=== PATIENT | female | born 1935 | race Caucasian/White ===

== ENCOUNTER 2016-10-27 14:59 | Emergency (ER) | payer MEDICARE, BC ==
[2016-10-27 17:49] VITALS: BP 126/64
--- NOTE | 2016-10-27 18:40 | EDM.PDOC ---
ED HPI GENERAL MEDICAL PROBLEM - General Chief Complaint: General Time Seen by Provider: 10/27/16 17:22 Source of Information: Reports: Patient, Old records, RN notes reviewed History Limitations: Reports: No limitations - History of Present Illness INITIAL COMMENTS - FREE TEXT/NARRATIVE: 81-year-old female presents emergency department today sent from clinic concern for development of a blood clot she had swelling in her left lower extremity lab work was done CBC CMP unremarkable ultrasound was ordered and then canceled , she denies shortness of breath chest pain nausea vomiting swelling has improved since her initial evaluation in clinic denies Pain Score (Numeric/FACES): 0 - Related Data Allergies Allergy/AdvReac Type Severity Reaction Status Date / Time atorvastatin calcium Allergy Hives Verified 10/27/16 16:14 [From Lipitor] sulfamethoxazole Allergy Rash Verified 10/27/16 16:14 [From Bactrim] trimethoprim [From Bactrim] Allergy Rash Verified 10/27/16 16:14 ampicillin AdvReac Stomach Verified 10/27/16 16:14 Upset ezetimibe [From Vytorin] AdvReac Muscle Verified 10/27/16 16:14 Aches lovastatin [From Mevacor] AdvReac Muscle Verified 10/27/16 16:14 Aches simvastatin [From Vytorin] AdvReac Muscle Verified 10/27/16 16:14 Aches environmental Allergy Sneezing Uncoded 10/27/16 16:14 Home Meds: Home Meds Isosorbide Mononitrate [Isosorbide Mononitrate ER] 30 mg PO DAILY 06/02/14 [ History] Metoprolol Tartrate [Lopressor] 25 mg PO BEDTIME 06/02/14 [History] Metoprolol Tartrate [Lopressor] 50 mg PO QAM 06/02/14 [History] Multivitamin [Multi-Vitamin Daily] 1 each PO DAILY 06/02/14 [History] Rosuvastatin [Crestor] 10 mg PO BEDTIME 06/02/14 [History] Furosemide [Lasix] 40 mg PO DAILY 11/12/14 [History] Magnesium Oxide 400 mg PO DAILY 11/12/14 [History] Nitroglycerin [Nitrostat] 0.4 mg SL ASDIRECTED PRN 11/12/14 [History] Potassium Chloride [Klor-Con] 20 meq PO DAILY 11/12/14 [History] Warfarin [Coumadin] 4 mg PO BEDTIME 11/12/14 [History] Ergocalciferol (Vitamin D2) [Vitamin D] 400 units PO DAILY 05/18/16 [History] Nystatin [Nystatin Ointment] 1 dose TOP BID 08/27/16 [History] [place]-3/DHA/Epa/Fish Oil [[place]-3 Fish Oil 1,000 MG Sfgl] 1 tab PO DAILY [History] Warfarin Sodium [Coumadin] 6 mg PO ASDIRECTED 08/27/16 [History] Past Medical History HEENT History: Reports: Cataract, Epistaxis, Impaired vision Other HEENT History: on coumadin Cardiovascular History: Reports: Afib, CAD, Heart Failure, High cholesterol, Hypertension, Prior cardiac arrest, Stents Gastrointestinal History: Reports: Chronic constipation Genitourinary History: Reports: UTI, recurrent 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: Dysfunctional uterine bleeding, Musculoskeletal History: Reports: Arthritis Neurological History: Reports: TIA Endocrine/Metabolic History: Reports: Obesity/BMI 30+ Oncologic (Cancer) History: Reports: Colon Dermatologic History: Reports: Other (see below) Other Dermatologic History: keratosis - Infectious Disease History Infectious Disease History: Reports: Chicken pox, Measles, Mumps - Past Surgical History HEENT Surgical History: Reports: Adenoidectomy, Cataract surgery, Tonsillectomy Cardiovascular Surgical History: Reports: Coronary artery stent, Pacer, Other ( see below) Other Cardiovascular Surgeries/Procedures: pacemaker/defibrillator, multiple angiograms GI Surgical History: Reports: Appendectomy, Cholecystectomy, Colonoscopy, Other (see below) Other GI Surgeries/Procedures: colon resection for colon CA Female Surgical History: Reports: Breast biopsy, Hysterectomy Social & Family History - Tobacco Use Smoking Status *Q: Never Smoker Years of Tobacco use: 40 Packs/Tins Daily: 0.5 Used Tobacco, but Quit: Yes Month Tobacco Last Used: 07/2004 Second Hand Smoke Exposure: No - Caffeine Use Caffeine Use: Reports: Coffee, Tea - Alcohol Use Days Per Week of Alcohol Use: 3 Number of Drinks Per Day: 1 Total Drinks Per Week: 3 - Recreational Drug Use Recreational Drug Use: No - Living Situation & Occupation Living situation: Reports: , with spouse Occupation: retired ED ROS GENERAL - Review of Systems Review Of Systems: See Below Constitutional: Reports: no symptoms Respiratory: Reports: No Symptoms Cardiovascular: Reports: Edema GI/Abdominal: Reports: No symptoms : Reports: no symptoms ED EXAM, GENERAL - Physical Exam Exam: See Below Free Text/Narrative:: examination of the left lower extremity do appreciate a few petechiae on the medial aspect of the left lower charming pedal pulses +1 full range of motion of the ankle without pain there's no tenderness in the toes I don't appreciate much for edema there is no tenderness to palpation Exam Limited By: No limitations General Appearance: alert, WD/WN, no apparent distress Respiratory/Chest: no respiratory distress Course - Vital Signs Last Recorded V/S: Last Vital Signs Temp 99.1 F 10/27/16 16:21 Pulse 65 10/27/16 17:47 Resp 16 10/27/16 17:47 BP 126/64 10/27/16 17:47 Pulse Ox 96 10/27/16 17:47 - Orders/Labs/Meds Orders: Active Orders 24 hr Category Date Time Status VL Duplex Lwr Ext Veins Ltd Lt [US] Stat Exams 10/27/16 17:11 Taken Departure - Departure Time of Disposition: 18:39 Disposition: Home, Self-Care 01 Condition: good Clinical Impression: Peripheral vascular disease Forms: ED Department Discharge Additional Instructions: try the compression hose, Please followup with your primary care provider in 3 -5 days if not better, please call return to the emergency department with worsening of symptoms. - My Orders Last 24 Hours: My Active Orders 10/27/16 17:11 VL Duplex Lwr Ext Veins Ltd Lt [US] Stat - Assessment/Plan Last 24 Hours: My Active Orders 10/27/16 17:11 VL Duplex Lwr Ext Veins Ltd Lt [US] Stat Plan: Assessment Acuity = chronic Site and laterality = leg edema Etiology = suspicious for peripheral vascular disease Manifestations = none Location of injury = home Lab values = ultrasound lower extremity was negative for any DVT Plan recommend trying compression hose for evaluation one week also recommend further evaluation by primary care including ankle-brachial index Patient was in agreement with the plan all questions were answered, they were instructed to return to the emergency department or call for worsening symptoms. This note was dictated using [employer] voice recognition software please call with any questions.
--- NOTE | 2016-10-30 10:01 | US ---
VL Duplex Lwr Ext Veins Ltd Lt pain and swelling FINDINGS: Ultrasound examination of the lower extremity using Doppler and compressive technique demo nstrates that the common femoral, femoral, and popliteal veins are patent, and negative for thrombus . The calf veins were segmentally visualized and are negative where seen. IMPRESSION: Negative for deep venous thrombosis.
== END 2016-10-27 18:49 | disposition home or self-care (01) ==
LOC: JP.ED 14:59
DX: I73.9 Peripheral vascular disease, unspecified (principal); I48.91 Unspecified atrial fibrillation; I50.9 Heart failure, unspecified; E78.00 Pure hypercholesterolemia, unspecified; I10 Essential (primary) hypertension; E66.9 Obesity, unspecified; Z68.32 Body mass index [BMI] 32.0-32.9, adult; Z86.73 Personal history of transient ischemic attack (TIA), and cerebral infarction without residual deficits; Z98.49 Cataract extraction status, unspecified eye; Z95.0 Presence of cardiac pacemaker; Z95.1 Presence of aortocoronary bypass graft; Z90.49 Acquired absence of other specified parts of digestive tract; Z90.710 Acquired absence of both cervix and uterus; Z98.890 Other specified postprocedural states; Z79.01 Long term (current) use of anticoagulants; Z79.899 Other long term (current) drug therapy; Z88.1 Allergy status to other antibiotic agents; Z88.8 Allergy status to other drugs, medicaments and biological substances
CPT/HCPCS: 93971-26-LT; 93971-LT; 99283; 99284-25

== ENCOUNTER 2019-06-01 09:31 | Emergency (ER) | payer MEDICARE, BC ==
--- NOTE | 2019-06-01 09:54 | EDM.PDOC ---
ED HPI GENERAL MEDICAL PROBLEM - General Chief Complaint: General Stated Complaint: HEART ISSUES Time Seen by Provider: 06/01/19 09:54 Source of Information: Reports: Patient History Limitations: Reports: No Limitations - History of Present Illness INITIAL COMMENTS - FREE TEXT/NARRATIVE: For the past 2 weeks melo has been quite sob. She woke up this am and she felt like her heart was rapid and irregular. She has not had chest pain. Onset: Other ( rapid heart rhythm when she first woke up. She is better now. ) Duration: Hour(s): Location: Reports: Chest Associated Symptoms: Reports: Shortness of Breath, Weakness - Related Data Allergies Allergy/AdvReac Type Severity Reaction Status Date / Time atorvastatin calcium Allergy Hives Verified 06/01/19 10:01 [From Lipitor] sulfamethoxazole Allergy Rash Verified 06/01/19 10:01 [From Bactrim] trimethoprim [From Bactrim] Allergy Rash Verified 06/01/19 10:01 ampicillin AdvReac Stomach Verified 06/01/19 10:01 Upset ezetimibe [From Vytorin] AdvReac Muscle Verified 06/01/19 10:01 Aches lovastatin [From Mevacor] AdvReac Muscle Verified 06/01/19 10:01 Aches simvastatin [From Vytorin] AdvReac Muscle Verified 06/01/19 10:01 Aches environmental Allergy Sneezing Uncoded 05/09/18 13:42 Home Meds: Home Meds Isosorbide Mononitrate [Isosorbide Mononitrate ER] 30 mg PO DAILY 06/02/14 [ History] Metoprolol Tartrate [Lopressor] 25 mg PO BEDTIME 06/02/14 [History] Metoprolol Tartrate [Lopressor] 50 mg PO QAM 06/02/14 [History] Multivitamin [Multi-Vitamin Daily] 1 each PO DAILY 06/02/14 [History] Furosemide [Lasix] 40 mg PO DAILY 11/12/14 [History] Nitroglycerin [Nitrostat] 0.4 mg SL ASDIRECTED PRN 11/12/14 [History] Potassium Chloride [Klor-Con] 20 meq PO DAILY 11/12/14 [History] Warfarin [Coumadin] 4 mg PO BEDTIME 11/12/14 [History] Ergocalciferol (Vitamin D2) [Vitamin D] 400 units PO DAILY 05/18/16 [History] Nystatin [Nystatin Ointment] 1 dose TOP BID 08/27/16 [History] [place]-3/DHA/Epa/Fish Oil [[place]-3 Fish Oil 1,000 MG Sfgl] 1 tab PO DAILY [History] Clopidogrel [Plavix] 75 mg PO DAILY 05/09/18 [History] Past Medical History HEENT History: Reports: Cataract, Epistaxis, Impaired Vision Other HEENT History: on coumadin Cardiovascular History: Reports: Afib, CAD, Heart Failure, High Cholesterol, Hypertension, Prior Cardiac Arrest, Stents Gastrointestinal History: Reports: Chronic Constipation Genitourinary History: Reports: UTI, Recurrent 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: Dysfunctional Uterine Bleeding, Musculoskeletal History: Reports: Arthritis Neurological History: Reports: TIA Endocrine/Metabolic History: Reports: Obesity/BMI 30+ Oncologic (Cancer) History: Reports: Colon, Lung Dermatologic History: Reports: Other (See Below) Other Dermatologic History: keratosis - Infectious Disease History Infectious Disease History: Reports: Chicken Pox, Measles, Mumps - Past Surgical History HEENT Surgical History: Reports: Adenoidectomy, Cataract Surgery, Tonsillectomy Cardiovascular Surgical History: Reports: Coronary Artery Stent, Pacer GI Surgical History: Reports: Appendectomy, Cholecystectomy, Colonoscopy, Other (See Below) Other GI Surgeries/Procedures: colon resection Female Surgical History: Reports: Breast Biopsy, Hysterectomy Social & Family History - Caffeine Use Caffeine Use: Reports: Coffee, Tea - Living Situation & Occupation Living situation: Reports: , with Spouse Occupation: Retired ED ROS GENERAL - Review of Systems Review Of Systems: See Below Constitutional: Reports: No Symptoms, Weakness HEENT: Reports: No Symptoms Respiratory: Reports: No Symptoms Cardiovascular: Reports: No Symptoms Endocrine: Reports: No Symptoms GI/Abdominal: Reports: No Symptoms : Reports: No Symptoms Musculoskeletal: Reports: No Symptoms Skin: Reports: No Symptoms Neurological: Reports: No Symptoms ED EXAM, GENERAL - Physical Exam Exam: See Below Free Text/Narrative:: pt hs had some rapid rhythms when she first wakes up in the am. She has not had chest pain. She has been very tired out. Exam Limited By: No Limitations General Appearance: Alert, No Apparent Distress Ears: Normal TMs Nose: Normal Inspection Throat/Mouth: Normal Inspection Head: Atraumatic Neck: Normal Inspection Respiratory/Chest: No Respiratory Distress, Other (pt did not have rales or wheezing. ) Cardiovascular: Regular Rate, Rhythm, Other (pt has a history of atrial fib and thinks she may have been in and out of that. ) GI/Abdominal: Soft, Non-Tender Rectal (Female) Exam: Deferred Back Exam: Normal Inspection Extremities: Normal Inspection Neurological: Alert, Oriented, Normal Cognition Psychiatric: Normal Affect Course - Vital Signs Last Recorded V/S: Last Vital Signs Temp 36.4 C 06/01/19 10:01 Pulse 64 06/01/19 10:01 Resp 14 06/01/19 10:01 BP 168/67 H 06/01/19 10:01 Pulse Ox 95 06/01/19 10:01 - Orders/Labs/Meds Orders: Active Orders 24 hr Category Date Time Status EKG Documentation Completion [RC] ASDIRECTED Care 06/01/19 09:53 Active CULTURE URINE [RM] Stat Lab 06/01/19 14:00 Received EKG 12 Lead [EK] Routine Ther 06/01/19 09:53 Ordered Labs: Laboratory Tests 06/01/19 06/01/19 06/01/19 Range/Units 10:04 10:04 10:04 WBC 5.2 (4.5-11.0) K/uL RBC 4.27 (3.30-5.50) M/uL Hgb 14.3 (12.0-15.0) g/dL Hct 43.5 (36.0-48.0) % MCV 102 H (80-98) fL MCH 34 H (27-31) pg MCHC 33 (32-36) % Plt Count 185 (150-400) K/uL Neut % (Auto) 46 (36-66) % Lymph % (Auto) 33 (24-44) % Heard % (Auto) 15 H (2-6) % Eos % (Auto) 5 H (2-4) % Baso % (Auto) 1 (0-1) % PT (9.5-12.0) sec INR (0.80-1.20) Sodium 140 (140-148) mmol/L Potassium 4.4 (3.6-5.2) mmol/L Chloride 102 (100-108) mmol/L Carbon Dioxide 29 (21-32) mmol/L Anion Gap 8.8 (5.0-14.0) mmol/L BUN 28 H (7-18) mg/dL Creatinine 1.4 H (0.6-1.0) mg/dL Est Cr Clr Drug Dosing 29.61 mL/min Estimated GFR (MDRD) 36 L (>60) Glucose 121 H (74-106) mg/dL Calcium 9.4 (8.5-10.1) mg/dL Total Bilirubin 0.8 (0.2-1.0) mg/dL AST 20 (15-37) U/L ALT 22 (12-78) U/L Alkaline Phosphatase 99 (46-116) U/L Troponin I 0.020 (0.000-0.056) ng/mL NT-Pro-B Natriuret Pep (5-450) pg/mL Total Protein 7.1 (6.4-8.2) g/dL Albumin 3.5 (3.4-5.0) g/dL Globulin 3.6 H (2.3-3.5) g/dL Albumin/Globulin Ratio 1.0 L (1.2-2.2) Urine Color (YELLOW) Urine Appearance (CLEAR) Urine pH (5.0-8.0) Ur Specific [place] (1.008-1.030) Urine Protein (NEGATIVE) mg/dL Urine Glucose (UA) (NEGATIVE) mg/dL Urine Ketones (NEGATIVE) mg/dL Urine Occult Blood (NEGATIVE) Urine Nitrite (NEGATIVE) Urine Bilirubin (NEGATIVE) Urine Urobilinogen (0.2-1.0) EU/dL Ur Leukocyte Esterase (NEGATIVE) Urine RBC (0-5) Urine WBC (0-5) Ur Epithelial Cells Amorphous Sediment Urine Bacteria Urine Mucus 06/01/19 06/01/19 06/01/19 Range/Units 10:04 10:04 10:46 WBC (4.5-11.0) K/uL RBC (3.30-5.50) M/uL Hgb (12.0-15.0) g/dL Hct (36.0-48.0) % MCV (80-98) fL MCH (27-31) pg MCHC (32-36) % Plt Count (150-400) K/uL Neut % (Auto) (36-66) % Lymph % (Auto) (24-44) % Heard % (Auto) (2-6) % Eos % (Auto) (2-4) % Baso % (Auto) (0-1) % PT 25.7 H (9.5-12.0) sec INR 2.51 H (0.80-1.20) Sodium (140-148) mmol/L Potassium (3.6-5.2) mmol/L Chloride (100-108) mmol/L Carbon Dioxide (21-32) mmol/L Anion Gap (5.0-14.0) mmol/L BUN (7-18) mg/dL Creatinine (0.6-1.0) mg/dL Est Cr Clr Drug Dosing mL/min Estimated GFR (MDRD) (>60) Glucose (74-106) mg/dL Calcium (8.5-10.1) mg/dL Total Bilirubin (0.2-1.0) mg/dL AST (15-37) U/L ALT (12-78) U/L Alkaline Phosphatase (46-116) U/L Troponin I (0.000-0.056) ng/mL NT-Pro-B Natriuret Pep 647 H (5-450) pg/mL Total Protein (6.4-8.2) g/dL Albumin (3.4-5.0) g/dL Globulin (2.3-3.5) g/dL Albumin/Globulin Ratio (1.2-2.2) Urine Color Yellow (YELLOW) Urine Appearance Clear (CLEAR) Urine pH 7.0 (5.0-8.0) Ur Specific [place] 1.015 (1.008-1.030) Urine Protein Negative (NEGATIVE) mg/dL Urine Glucose (UA) Negative (NEGATIVE) mg/dL Urine Ketones Negative (NEGATIVE) mg/dL Urine Occult Blood Trace-intact H (NEGATIVE) Urine Nitrite Positive H (NEGATIVE) Urine Bilirubin Negative (NEGATIVE) Urine Urobilinogen 0.2 (0.2-1.0) EU/dL Ur Leukocyte Esterase Trace H (NEGATIVE) Urine RBC 0-5 (0-5) Urine WBC 0-5 (0-5) Ur Epithelial Cells Rare Amorphous Sediment Rare Urine Bacteria Moderate Urine Mucus Rare - Re-Assessments/Exams Free Text/Narrative Re-Assessment/Exam: 06/01/19 15:00 pt had a cat scan of the chest and there was concern that she may have some infection around the area of scarring, Most recent cat scans were done at [facility]. The Cat scan was placed on disc so that her oncologist could compare. She was also found to have a UTI. Will place pt on Levoquin Departure - Departure Time of Disposition: 14:24 Disposition: Home, Self-Care 01 Condition: Fair Clinical Impression: Pneumonia of right lung due to infectious organism, UTI (urinary tract infection) - Discharge Information Instructions: Urinary Tract Infection, Adult, [id number], Community-Acquired Pneumonia, Adult, [id number] Referrals: Matheus Moody MD [Primary Care Provider] - Forms: ED Department Discharge Care Plan Goals: push fluids, levoquin 500mg daily appt with oncology in the next week to 10 days. - My Orders Last 24 Hours: My Active Orders 06/01/19 09:53 EKG Documentation Completion [RC] ASDIRECTED EKG 12 Lead [EK] Routine 06/01/19 14:00 CULTURE URINE [RM] Stat - Assessment/Plan Last 24 Hours: My Active Orders 06/01/19 09:53 EKG Documentation Completion [RC] ASDIRECTED EKG 12 Lead [EK] Routine 06/01/19 14:00 CULTURE URINE [RM] Stat
[2019-06-01 09:58] VITALS: BP 168/67; PULSE 64
--- NOTE | 2019-06-01 11:42 | CRLCR ---
Clinical INDICATION: Shortness of breath. FINDINGS: There is an infiltrate within the posterior segment of the right upper lobe most likely representing pneumonia. The left lung is clear. There is a pacemaker device upon the left side of the chest with right atrial and right ventricular leads. There is an electronic device inferior to the pacemaker that is superficial to the skin. The pulmonary vasculature and pleural surfaces appear normal. There are right upper quadrant cholecystectomy clips. IMPRESSION: Right upper lobe infiltrate consistent with pneumonia. Radiographic followup to total resolution is recommended. Dictated by Ayden Teran MD @ Jun 01 2019 11:37AM Signed by Dr. Ayden Teran @ Jun 01 2019 11:40AM
--- NOTE | 2019-06-01 14:15 | CRLCT ---
INDICATION: Pulmonary infiltrate. History of right lung cancer. TECHNIQUE: CT chest without contrast. COMPARISON: Chest radiograph 04/01/2019 FINDINGS: Cardiovascular structures: Mild left atrial enlargement. No pericardial effusion. Coronary artery calcifications. Mitral annular calcification. Atherosclerotic calcification the thoracic aorta. Dilatation of the ascending aorta measuring 4.4 cm, not significantly changed since 01/03/2017. Left chest wall dual lead AICD with lead tips terminating in the right atrium and right ventricle. Mediastinum and leila: No mediastinal or hilar lymphadenopathy, noting somewhat limited evaluation of the leila due to lack of intravenous contrast. Lungs: There are probable postsurgical changes of right upper lobe wedge resection. There is a dense consolidation in the right upper lobe with air bronchograms. Areas of scarring in the right upper lobe likely related to postradiation changes. Biapical pleural parenchymal scarring. Few scattered ground-glass opacities in the left lower lobe (for example, series 3, images 47, 65, 73, 76). Pleura and pericardium: No effusions. Chest wall and axilla: No mass or adenopathy. Bones: Mild degenerative changes of the spine. Upper abdomen: Status post cholecystectomy. There is intrahepatic biliary ductal pneumatosis. Partially visualized surgical clips and sutures at the colon along the hepatic flexure. IMPRESSION: 1. Dense consolidation in the right upper lobe with air bronchograms, suspicious for pneumonia. A postobstructive pneumonia cannot be entirely excluded. Recommend comparison to more recent chest CT repeat chest CT following treatment. 2. Few scattered ground-glass opacities in the left lower lobe, likely related to infectious or inflammatory etiology. 3. Ascending aortic aneurysm measuring 4.4 cm, not significantly changed since 01/03/2017. Findings discussed with Dr. Tinsley on 06/01/2019 at 2:10 p.m. Dictated by Shanique Lacy MD @ 06/01/2019 2:13:55 PM Please note that all CT scans at this facility use dose modulation, iterative reconstruction, and/or weight-based dosing when appropriate to reduce radiation dose to as low as reasonably achievable. Dictated by: Shanique Lacy MD @ 06/01/2019 14:14:20 (Electronically Signed)
== END 2019-06-01 14:46 | disposition home or self-care (01) ==
LOC: JP.ED 09:31
DX: J18.9 Pneumonia, unspecified organism (principal); N39.0 Urinary tract infection, site not specified; I11.0 Hypertensive heart disease with heart failure; I50.9 Heart failure, unspecified; I25.10 Atherosclerotic heart disease of native coronary artery without angina pectoris; I48.91 Unspecified atrial fibrillation; E66.9 Obesity, unspecified; Z79.899 Other long term (current) drug therapy; Z88.8 Allergy status to other drugs, medicaments and biological substances; Z91.09 Other allergy status, other than to drugs and biological substances; Z88.1 Allergy status to other antibiotic agents
CPT/HCPCS: 36415; 71046; 71250; 80053; 81001; 83880; 84484; 85025; 85610; 87086; 87088; 87186; 93005; 93010; 99285-25

== ENCOUNTER 2020-01-19 07:41 | Emergency (ER) | payer MEDICARE, BC ==
--- NOTE | 2020-01-19 08:18 | EDM.PDOC ---
ED HPI GENERAL MEDICAL PROBLEM - General Chief Complaint: Back Pain or Injury Stated Complaint: BACK/SHOULDER PAIN FROM FALL Time Seen by Provider: 01/19/20 08:07 Source of Information: Reports: Patient, Family, RN Notes Reviewed History Limitations: Reports: No Limitations - History of Present Illness INITIAL COMMENTS - FREE TEXT/NARRATIVE: 84-year-old female presents to the emergency department with a complaint of back pain and knee pain, she fell yesterday on her deck while she was watering her ying landed on her right knee and then fell to the ground. She has not taken anything for the pain but she states the right knee hurts and she has pain in the middle of her back she describes a clicking noise. No loss of consciousness she did not hit her head she is not taking anything for the pain Upper Back Pain Score (Numeric/FACES): 3 - Related Data Allergies Allergy/AdvReac Type Severity Reaction Status Date / Time atorvastatin calcium Allergy Hives Verified 06/11/19 01:12 [From Lipitor] sulfamethoxazole Allergy Rash Verified 06/11/19 01:12 [From Bactrim] trimethoprim [From Bactrim] Allergy Rash Verified 06/11/19 01:12 ampicillin AdvReac Stomach Verified 06/11/19 01:12 Upset ezetimibe [From Vytorin] AdvReac Muscle Verified 06/11/19 01:12 Aches lovastatin [From Mevacor] AdvReac Muscle Verified 06/11/19 01:12 Aches simvastatin [From Vytorin] AdvReac Muscle Verified 06/11/19 01:12 Aches environmental Allergy Sneezing Uncoded 06/11/19 01:12 Home Meds: Home Meds Isosorbide Mononitrate [Isosorbide Mononitrate ER] 30 mg PO DAILY 06/02/14 [History] Metoprolol Tartrate [Lopressor] 25 mg PO BEDTIME 06/02/14 [History] Metoprolol Tartrate [Lopressor] 50 mg PO QAM 06/02/14 [History] Multivitamin [Multi-Vitamin Daily] 1 each PO DAILY 06/02/14 [History] Furosemide [Lasix] 40 mg PO DAILY 11/12/14 [History] Nitroglycerin [Nitrostat] 0.4 mg SL ASDIRECTED PRN 11/12/14 [History] Potassium Chloride [Klor-Con] 20 meq PO DAILY 11/12/14 [History] Warfarin [Coumadin] 4 mg PO BEDTIME 11/12/14 [History] Ergocalciferol (Vitamin D2) [Vitamin D] 400 units PO DAILY 05/18/16 [History] Nystatin [Nystatin Ointment] 1 dose TOP BID 08/27/16 [History] Clopidogrel [Plavix] 75 mg PO DAILY 05/09/18 [History] allopurinoL [Zyloprim] 200 mg PO BEDTIME 01/19/20 [History] Past Medical History HEENT History: Reports: Cataract, Epistaxis, Impaired Vision Other HEENT History: on coumadin Cardiovascular History: Reports: Afib, Automatic Implantable Cardioverter Defibrillators, CAD, Heart Failure, High Cholesterol, Hypertension, PA, Pacemaker, Prior Cardiac Arrest, Stents Respiratory History: Reports: Other (See Below) Other Respiratory History: Lung CA Gastrointestinal History: Reports: Chronic Constipation Genitourinary History: Reports: UTI, 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: Dysfunctional Uterine Bleeding, Musculoskeletal History: Reports: Arthritis Neurological History: Reports: TIA Endocrine/Metabolic History: Reports: Obesity/BMI 30+ Hematologic History: Reports: Anticoagulation Therapy Oncologic (Cancer) History: Reports: Colon, Lung Dermatologic History: Reports: Other (See Below) Other Dermatologic History: keratosis - Infectious Disease History Infectious Disease History: Reports: Chicken Pox, Measles - Past Surgical History HEENT Surgical History: Reports: Adenoidectomy, Cataract Surgery, Tonsillectomy Cardiovascular Surgical History: Reports: AICD, Coronary Artery Stent, Pacer Respiratory Surgical History: Reports: Lung Biopsies GI Surgical History: Reports: Appendectomy, Cholecystectomy, Colonoscopy, Other (See Below) Other GI Surgeries/Procedures: colon resection Female Surgical History: Reports: Breast Biopsy, Hysterectomy Social & Family History - Tobacco Use Smoking Status *Q: Never Smoker - Caffeine Use Caffeine Use: Reports: Coffee - Living Situation & Occupation Living situation: Reports: , with Spouse Occupation: Retired ED ROS GENERAL - Review of Systems Review Of Systems: See Below Constitutional: Reports: No Symptoms Respiratory: Reports: No Symptoms Cardiovascular: Reports: No Symptoms GI/Abdominal: Reports: No Symptoms Musculoskeletal: Reports: Back Pain, Joint Pain (Right knee pain) ED EXAM, GENERAL - Physical Exam Exam: See Below Free Text/Narrative:: Examination of the right knee I do appreciate a superficial abrasion inferior aspect of the patella I cannot elicit any joint line tenderness there is no tenderness with valgus or valgus maneuvers anterior drawer is negative Lockman's is negative, examination of the thorax she is point tender about the T4 region on the spinous process otherwise no tenderness to palpation paraspinally respirations are symmetrical Exam Limited By: No Limitations General Appearance: Alert, WD/WN, No Apparent Distress Respiratory/Chest: No Respiratory Distress, Lungs Clear, Normal Breath Sounds, No Accessory Muscle Use, Chest Non-Tender Cardiovascular: Regular Rate, Rhythm, No Murmur Course - Vital Signs Last Recorded V/S: Last Vital Signs Temp 97 F 01/19/20 08:00 Pulse 63 01/19/20 09:52 Resp 16 01/19/20 09:52 BP 126/61 01/19/20 09:52 Pulse Ox 99 01/19/20 09:52 Departure - Departure Time of Disposition: 09:58 Disposition: Home, Self-Care 01 Condition: Fair Clinical Impression: Knee contusion Qualifiers: Encounter type: initial encounter Laterality: right Qualified Code(s): S80.01XA - Contusion of right knee, initial encounter Compression fracture of T9 vertebra Qualifiers: Encounter type: initial encounter Qualified Code(s): S22.070A - Wedge com pression fracture of T9-T10 vertebra, initial encounter for closed fracture - Discharge Information Instructions: Contusion, [id number], Thoracic Spine Fracture, [id number] Referrals: Matheus Moody MD [Primary Care Provider] - Forms: ED Department Discharge Additional Instructions: Continue with regular medications, use Tylenol as needed for pain control, please followup with your primary care provider in 3-5 days if not better, please call return to the emergency department with worsening of symptoms. Sepsis Event Note (ED) - Evaluation Sepsis Screening Result: No Definite Risk - Focused Exam Vital Signs: Vital Signs Temp Pulse Resp BP Pulse Ox 01/19/20 09:52 63 16 126/61 99 01/19/20 08:00 97 F 66 16 194/66 H 99 - Assessment/Plan Plan: Assessment Acuity = acute Site and laterality = T9 compression fraction unknown age, right knee contusion Etiology = secondary to fall Manifestations = none Location of injury = Home Lab values = x-rays described the fracture above Plan Continue with symptomatic care her blood pressure did resolve after taking her blood pressure medications use Tylenol as needed for pain control keep her regular follow-up appointments with oncology This note was dictated using [employer] voice recognition software please call with any questions on syntax or grammar.
--- NOTE | 2020-01-19 09:39 | CR ---
Knee 3V Rt, Thoracic Spine 3V CLINICAL HISTORY: Pain, fall FINDINGS: No acute fracture or dislocation is noted. There are no osseous lesions. There are some meniscal calcifications. There is mild patellar spurring. IMPRESSION: Osteoarthritic change No fracture Knee 3V Rt, Thoracic Spine 3V CLINICAL HISTORY: Fall FINDINGS: A 9. Chronology is uncertain. There is some disc space narrowing. There is mild diffuse osteophytosis. The pedicles are unremarkable. IMPRESSION: Mild lateral compression of T9. Chronology is uncertain Degenerative disc changes
[2020-01-19 09:53] VITALS: BP 126/61; PULSE 63
== END 2020-01-19 10:19 | disposition home or self-care (01) ==
LOC: JP.ED 07:41
DX: S22.079A Unspecified fracture of T9-T10 vertebra, initial encounter for closed fracture (principal); S80.01XA Contusion of right knee, initial encounter; I48.91 Unspecified atrial fibrillation; I25.10 Atherosclerotic heart disease of native coronary artery without angina pectoris; I11.0 Hypertensive heart disease with heart failure; I50.9 Heart failure, unspecified; E78.00 Pure hypercholesterolemia, unspecified; I25.2 Old myocardial infarction; E66.9 Obesity, unspecified; Z68.31 Body mass index [BMI] 31.0-31.9, adult; Z86.73 Personal history of transient ischemic attack (TIA), and cerebral infarction without residual deficits; Z88.8 Allergy status to other drugs, medicaments and biological substances; Z88.2 Allergy status to sulfonamides; Z88.1 Allergy status to other antibiotic agents; Z91.09 Other allergy status, other than to drugs and biological substances; Z79.01 Long term (current) use of anticoagulants; Z79.02 Long term (current) use of antithrombotics/antiplatelets; Z79.899 Other long term (current) drug therapy; W19.XXXA Unspecified fall, initial encounter
CPT/HCPCS: 72072; 72072-26; 73562-26-RT; 73562-RT; 99283

== ENCOUNTER 2022-05-24 14:27 | Emergency (ER) | payer MEDICARE, BC ==
[2022-05-24] MEDS ORDERED: Ketorolac 30 MG/ML SDV IVPUSH ONE (15:05)
[2022-05-24 15:52] VITALS: BP 136/59; PULSE 59
== END 2022-05-24 16:01 | disposition home or self-care (01) ==
LOC: JP.ED 14:27
DX: M62.81 Muscle weakness (generalized) (principal); I25.10 Atherosclerotic heart disease of native coronary artery without angina pectoris; I10 Essential (primary) hypertension; E66.9 Obesity, unspecified; Z68.31 Body mass index [BMI] 31.0-31.9, adult; Z88.8 Allergy status to other drugs, medicaments and biological substances; Z88.2 Allergy status to sulfonamides; Z88.0 Allergy status to penicillin; Z79.899 Other long term (current) drug therapy; Z79.01 Long term (current) use of anticoagulants; Z79.82 Long term (current) use of aspirin; Z90.49 Acquired absence of other specified parts of digestive tract; Z90.710 Acquired absence of both cervix and uterus; Z87.891 Personal history of nicotine dependence
CPT/HCPCS: 70450; 70450-26; 99285

== ENCOUNTER 2023-03-10 18:58 | Emergency (ER) | payer MEDICARE, BC ==
[2023-03-10 19:49] VITALS: BP 171/71; PULSE 69
== END 2023-03-10 21:40 | disposition home or self-care (01) ==
LOC: JP.ED 18:58
DX: S32.592G Other specified fracture of left pubis, subsequent encounter for fracture with delayed healing (principal); I48.91 Unspecified atrial fibrillation; I25.10 Atherosclerotic heart disease of native coronary artery without angina pectoris; I11.0 Hypertensive heart disease with heart failure; I50.9 Heart failure, unspecified; I25.2 Old myocardial infarction; E66.9 Obesity, unspecified; Z68.29 Body mass index [BMI] 29.0-29.9, adult; Z95.0 Presence of cardiac pacemaker; Z86.73 Personal history of transient ischemic attack (TIA), and cerebral infarction without residual deficits; Z88.0 Allergy status to penicillin; Z88.8 Allergy status to other drugs, medicaments and biological substances; Z88.1 Allergy status to other antibiotic agents; Z79.01 Long term (current) use of anticoagulants; Z79.899 Other long term (current) drug therapy; W18.30XA Fall on same level, unspecified, initial encounter; Y92.002 Bathroom of unspecified non-institutional (private) residence as the place of occurrence of the external cause
CPT/HCPCS: 72192; 99283

== ENCOUNTER 2023-03-12 02:18 | Inpatient (IN) | payer MEDICARE, BC ==
[2023-03-12] MEDS ORDERED: Albuterol 0.083% 2.5 MG/3 ML Neb Soln NEB PRN (04:36)
[2023-03-12] MEDS ORDERED: Nitroglycerin 0.4 MG Tab.SL SL PRN (04:36)
[2023-03-12] MEDS ORDERED: Ketorolac 10 MG Tab PO PRN (04:36)
[2023-03-12] MEDS ORDERED: Ondansetron 4 MG/2 ML SDV IV PRN (04:36)
[2023-03-12] MEDS ORDERED: Docusate Sodium 100 MG Cap PO PRN (04:36)
[2023-03-12] MEDS ORDERED: Ketorolac 30 MG/ML SDV IVPUSH PRN (04:36)
[2023-03-12 04:48] LABS: BASOPHILS ABSOLUTE AUTO 0.09 K/uL (0.00-0.10); BASOPHILS PERCENT AUTO 0.8 % (0.1-1.3); EOSINOPHILS ABSOLUTE AUTO 0.56 K/uL (0.00-0.40); EOSINOPHILS PERCENT AUTO 5.1 % (0.0-5.4); HEMOGLOBIN 14.3 g/dL (11.2-15.5); IMMATURE GRAN ABSOLUTE AUTO 0.04 K/uL (0.00-0.23); IMMATURE GRAN PERCENT AUTO 0.4 % (0.0-0.7); LYMPHOCYTES ABSOLUTE AUTO 1.96 K/uL (0.8-3.3); LYMPHOCYTES PERCENT AUTO 17.7 % (11.4-47.7); MEAN CORPUSCULAR HEMOGLOBIN 34.9 pg (31.6-35.5); MEAN CORPUSCULAR VOLUME 102.4 fL (81.4-99.0); MONOCYTES ABSOLUTE AUTO 1.56 K/uL (0.20-0.90); MONOCYTES PERCENT AUTO 14.1 % (3.3-12.6); NEUTROPHILS ABSOLUTE AUTO 6.87 K/uL (1.0-7.6); NEUTROPHILS PERCENT AUTO 61.9 % (40.0-78.1); PLATELET COUNT,PLT 165 K/uL (130-375); WHITE BLOOD CELL COUNT,WBC 11.1 K/uL (3.2-11.0)
[2023-03-12 05:01] LABS: INR 3.5; PROTHROMBIN TIME 32.8 sec (9.2-10.6)
[2023-03-12 05:05] LABS: CALCIUM 9.5 mg/dL (8.5-10.1); CREATININE 1.5 mg/dL (0.6-1.0); EST CRCL DRUG DOSING (CG) 26.65 mL/min; POTASSIUM,K 4.4 mmol/L (3.6-5.2)
[2023-03-12 05:19] LABS: ANION GAP 11.4 mmol/L (5.0-14.0)
[2023-03-12 05:30] LABS: APPEARANCE,URINE SLIGHTLY CLOUDY (CLEAR); BILIRUBIN,URINE NEGATIVE (NEGATIVE); COLOR,URINE YELLOW (YELLOW); GLUCOSE,URINE NEGATIVE (NEGATIVE); KETONES,URINE NEGATIVE (NEGATIVE); LEUKOCYTE ESTERASE,URINE TRACE (NEGATIVE); NITRITE,URINE POSITIVE (NEGATIVE); OCCULT BLOOD,URINE MODERATE (NEGATIVE); PH,URINE 5.5 (5.0-8.0); PROTEIN,URINE >=300 mg/dL (NEGATIVE); UROBILINOGEN,URINE 0.2 EU/dL (0.2-1.0)
[2023-03-12] MEDS: Sodium Chloride 0.9% 1,000 ML IV SCH ×3 (05:31→21:37)
[2023-03-12 05:38] LABS: BACTERIA,URINE MANY; EPITHELIAL CELLS,URINE FEW; RBC,URINE 0-5 (0-5)
[2023-03-12 05:39] LABS: AMORPHOUS SEDIMENT,URINE NOT SEEN; MUCUS,URINE NOT SEEN
[2023-03-12] MEDS ORDERED: cefTRIAXone 1 GM in Sodium Chloride 0.9% 50 ML IV ONE (05:45)
[2023-03-12] MEDS ORDERED: Non-Formulary Medication 1 Each (Cholecalciferol (Vitamin D3) [Vitamin D3] 10 MCG Tablet) PO SCH (09:00)
[2023-03-12] MEDS ORDERED: Metoprolol Tartrate 25 MG Tab PO SCH (09:00)
[2023-03-12] MEDS ORDERED: Furosemide 40 MG Tab PO SCH (09:00)
[2023-03-12] MEDS ORDERED: Metoprolol Tartrate 50 MG Tab PO SCH (09:00)
[2023-03-12] MEDS: Aspirin 81 MG Tab.EC PO SCH (10:18)
[2023-03-12] MEDS: Potassium Chloride 20 MEQ Tab.ER PO SCH (10:19)
[2023-03-12] MEDS: levETIRAcetam 250 MG Tab PO SCH ×2 (10:20→20:56)
[2023-03-12] MEDS: Gabapentin 100 MG Cap PO SCH ×2 (10:20→20:55)
[2023-03-12] MEDS: Acetaminophen 500 MG Tab PO SCH ×3 (10:20→20:57)
[2023-03-12] MEDS: Furosemide 20 MG Tab PO SCH (10:20)
[2023-03-12] MEDS: Isosorbide Mononitrate 30 MG Tab.ER PO SCH (10:21)
[2023-03-12] MEDS: Lisinopril 2.5 MG Tab PO SCH (10:21)
[2023-03-12] MEDS: Metoprolol Tartrate 25 MG Tab PO SCH ×2 (10:21→20:56)
[2023-03-12] MEDS: traMADol 50 MG Tab PO PRN ×2 (10:59→17:20)
[2023-03-12] MEDS: Docusate Sodium 100 MG Cap PO SCH ×2 (10:59→20:55)
[2023-03-12] MEDS ORDERED: Polyethylene Glycol 3350 Powder 17 GM Packet PO PRN (13:55)
[2023-03-12] MEDS: Melatonin 3 MG Tab PO SCH (20:56)
[2023-03-12] MEDS: Allopurinol 100 MG Tab PO SCH (20:57)
[2023-03-12] MEDS: Diclofenac Sodium 1% Gel 100 GM Tube TOP SCH (21:01)
[2023-03-12] MEDS: Psyllium Husk Powder Sugar Free 5.85 GM Packet PO SCH ×2 (21:03→21:58)
[2023-03-13] MEDS: traMADol 50 MG Tab PO PRN ×2 (01:27→08:09)
[2023-03-13] MEDS: Sodium Chloride 0.9% 1,000 ML IV SCH (05:30)
[2023-03-13 06:00] LABS: HEMATOCRIT 35.6 % (34.3-46.0); HEMOGLOBIN 11.9 g/dL (11.2-15.5); MEAN CORPUSCULAR HEMOGLOBIN 34.3 pg (31.6-35.5); MEAN CORPUSCULAR HGB CONC 33.4 g/dL (31.6-35.5); MEAN CORPUSCULAR VOLUME 102.6 fL (81.4-99.0); RED BLOOD CELL COUNT 3.47 M/uL (3.77-5.24); WHITE BLOOD CELL COUNT,WBC 8.7 K/uL (3.2-11.0)
[2023-03-13] MEDS ORDERED: cefTRIAXone 1 GM in Sodium Chloride 0.9% 50 ML IV SCH (06:00)
[2023-03-13 06:19] LABS: ANION GAP 9.8 mmol/L (5.0-14.0); CALCIUM 8.6 mg/dL (8.5-10.1); CREATININE 1.6 mg/dL (0.6-1.0); EST CRCL DRUG DOSING (CG) 24.99 mL/min; POTASSIUM,K 4.8 mmol/L (3.6-5.2)
[2023-03-13 06:51] LABS: INR 2.9; PROTHROMBIN TIME 27.4 sec (9.2-10.6)
[2023-03-13] MEDS: Ondansetron 4 MG Tab.DIS PO PRN (08:09)
[2023-03-13] MEDS: Docusate Sodium 100 MG Cap PO SCH ×2 (10:01→20:01)
[2023-03-13] MEDS: Aspirin 81 MG Tab.EC PO SCH (10:01)
[2023-03-13] MEDS: Potassium Chloride 20 MEQ Tab.ER PO SCH (10:01)
[2023-03-13] MEDS: levETIRAcetam 250 MG Tab PO SCH ×2 (10:01→20:01)
[2023-03-13] MEDS: Acetaminophen 500 MG Tab PO SCH ×3 (10:02→20:02)
[2023-03-13] MEDS: Furosemide 20 MG Tab PO SCH (10:02)
[2023-03-13] MEDS: Gabapentin 100 MG Cap PO SCH ×2 (10:02→20:02)
[2023-03-13] MEDS: Isosorbide Mononitrate 30 MG Tab.ER PO SCH (10:03)
[2023-03-13] MEDS: Metoprolol Tartrate 25 MG Tab PO SCH ×2 (10:05→20:01)
[2023-03-13] MEDS: Lisinopril 2.5 MG Tab PO SCH (10:05)
[2023-03-13] MEDS ORDERED: tiZANidine 2 MG Tab PO PRN (11:57)
[2023-03-13] MEDS: oxyCODONE 5 MG Tab PO PRN (12:14)
[2023-03-13] MEDS: Melatonin 3 MG Tab PO SCH (20:01)
[2023-03-13] MEDS: Diclofenac Sodium 1% Gel 100 GM Tube TOP SCH (20:02)
[2023-03-13] MEDS: Psyllium Husk Powder Sugar Free 5.85 GM Packet PO SCH (20:02)
[2023-03-13] MEDS: Allopurinol 100 MG Tab PO SCH (20:02)
[2023-03-14] MEDS: oxyCODONE 5 MG Tab PO PRN ×2 (02:28→08:11)
[2023-03-14 04:59] LABS: INR 3.2; PROTHROMBIN TIME 30.1 sec (9.2-10.6)
[2023-03-14 05:08] LABS: CREATININE 1.5 mg/dL (0.6-1.0); EST CRCL DRUG DOSING (CG) 26.65 mL/min; POTASSIUM,K 4.9 mmol/L (3.6-5.2)
[2023-03-14 05:09] LABS: ANION GAP 9.9 mmol/L (5.0-14.0)
[2023-03-14] MEDS: Ondansetron 4 MG Tab.DIS PO PRN (08:11)
[2023-03-14] MEDS: Cephalexin 250 MG Cap PO SCH ×2 (09:43→20:01)
[2023-03-14] MEDS: Potassium Chloride 20 MEQ Tab.ER PO SCH (09:43)
[2023-03-14] MEDS: Acetaminophen 500 MG Tab PO SCH ×3 (09:43→20:01)
[2023-03-14] MEDS: Docusate Sodium 100 MG Cap PO SCH ×2 (09:43→20:01)
[2023-03-14] MEDS: Gabapentin 100 MG Cap PO SCH ×2 (09:43→20:03)
[2023-03-14] MEDS: levETIRAcetam 250 MG Tab PO SCH ×2 (09:44→20:01)
[2023-03-14] MEDS: Aspirin 81 MG Tab.EC PO SCH (09:44)
[2023-03-14] MEDS: Furosemide 20 MG Tab PO SCH (09:44)
[2023-03-14] MEDS: Metoprolol Tartrate 25 MG Tab PO SCH ×2 (09:47→20:02)
[2023-03-14] MEDS: Lisinopril 2.5 MG Tab PO SCH (09:47)
[2023-03-14] MEDS: Isosorbide Mononitrate 30 MG Tab.ER PO SCH (09:47)
[2023-03-14] MEDS ORDERED: Lidocaine 5% 700 MG Patch TRDERM SCH (10:45)
[2023-03-14] MEDS: traMADol 50 MG Tab PO PRN ×3 (11:21→22:29)
[2023-03-14] MEDS: Melatonin 3 MG Tab PO SCH (20:01)
[2023-03-14] MEDS: Psyllium Husk Powder Sugar Free 5.85 GM Packet PO SCH (20:03)
[2023-03-14] MEDS: Diclofenac Sodium 1% Gel 100 GM Tube TOP SCH (20:03)
[2023-03-14] MEDS: Allopurinol 100 MG Tab PO SCH (20:04)
[2023-03-15] MEDS: traMADol 50 MG Tab PO PRN ×2 (03:13→07:01)
[2023-03-15 05:00] LABS: INR 2.3; PROTHROMBIN TIME 22.3 sec (9.2-10.6)
[2023-03-15 05:26] VITALS: BP 175/60; PULSE 76
[2023-03-15] MEDS: Aspirin 81 MG Tab.EC PO SCH (08:32)
[2023-03-15] MEDS: Cephalexin 250 MG Cap PO SCH (08:32)
[2023-03-15] MEDS: Acetaminophen 500 MG Tab PO SCH (08:33)
[2023-03-15] MEDS: levETIRAcetam 250 MG Tab PO SCH (08:33)
[2023-03-15] MEDS: Furosemide 20 MG Tab PO SCH (08:34)
[2023-03-15] MEDS: Isosorbide Mononitrate 30 MG Tab.ER PO SCH (08:34)
[2023-03-15] MEDS: Metoprolol Tartrate 25 MG Tab PO SCH (08:34)
[2023-03-15] MEDS: Docusate Sodium 100 MG Cap PO SCH (08:34)
[2023-03-15] MEDS: Potassium Chloride 20 MEQ Tab.ER PO SCH (08:34)
[2023-03-15] MEDS: Gabapentin 100 MG Cap PO SCH (08:34)
[2023-03-15] MEDS: Lisinopril 2.5 MG Tab PO SCH (08:35)
[2023-03-15] MEDS ORDERED: Lidocaine 4% 1 each Patch TOP SCH (09:00)
== END 2023-03-15 09:45 | DRG 560 ==
LOC: JP.ED 02:18 → JP.MS 03:26
PROVIDERS: ADMIT Hospitalist; ATTEND Internal Medicine
DX: S32.592G Other specified fracture of left pubis, subsequent encounter for fracture with delayed healing (principal); I48.20 Chronic atrial fibrillation, unspecified; S32.030A Wedge compression fracture of third lumbar vertebra, initial encounter for closed fracture; N30.00 Acute cystitis without hematuria; S32.592A Other specified fracture of left pubis, initial encounter for closed fracture; S32.5 Fracture of pubis; N18.32 Chronic kidney disease, stage 3b; S32.512A Fracture of superior rim of left pubis, initial encounter for closed fracture; Z20.822 Contact with and (suspected) exposure to COVID-19; I48.91 Unspecified atrial fibrillation; I10 Essential (primary) hypertension; I11.0 Hypertensive heart disease with heart failure; I50.9 Heart failure, unspecified; I25.10 Atherosclerotic heart disease of native coronary artery without angina pectoris; M1A.9XX0 Chronic gout, unspecified, without tophus (tophi); K59.09 Other constipation; W18.30XA Fall on same level, unspecified, initial encounter; E78.00 Pure hypercholesterolemia, unspecified; E66.9 Obesity, unspecified; Z98.49 Cataract extraction status, unspecified eye; Z90.49 Acquired absence of other specified parts of digestive tract; Z90.710 Acquired absence of both cervix and uterus; Z87.891 Personal history of nicotine dependence; Z98.890 Other specified postprocedural states; Z79.01 Long term (current) use of anticoagulants; Z79.82 Long term (current) use of aspirin; Z95.0 Presence of cardiac pacemaker; Z95.810 Presence of automatic (implantable) cardiac defibrillator; Z79.899 Other long term (current) drug therapy; Z95.5 Presence of coronary angioplasty implant and graft; W18.2XXA Fall in (into) shower or empty bathtub, initial encounter; Z86.73 Personal history of transient ischemic attack (TIA), and cerebral infarction without residual deficits; I25.2 Old myocardial infarction; Z88.0 Allergy status to penicillin; Z88.8 Allergy status to other drugs, medicaments and biological substances; Y92.89 Other specified places as the place of occurrence of the external cause
CPT/HCPCS: 99285; U0002; 36415; 72070; 72070-26; 72100; 72100-26; 80048; 81001; 85025; 85027; 85610; 97110-GP; 97116-GP; 97161-GP; 97165-GO; A9270-GY; J0696; J1885; J3490; J7030; Q0162